=== PATIENT | male | born 1950 ===

== ENCOUNTER 2019-12-24 07:53 | Day surgery (SDC) | payer OTHER | END 2019-12-24 13:30 | disposition home or self-care (01) | LOC: AMB-ENDOS 07:53 → EDSEX 13:00 → AMB-ENDOS 13:00 | PROVIDERS: ATTEND Surgery | DX: D12.2 Benign neoplasm of ascending colon (principal); D12.3 Benign neoplasm of transverse colon; D12.5 Benign neoplasm of sigmoid colon; Z20.828 Contact with and (suspected) exposure to other viral communicable diseases ==